=== PATIENT | female | born 1950 | race Caucasian/White ===

== ENCOUNTER → 2019-10-08 15:12 | Outpatient (BNVA) | payer MEDICARE, OTHER, SELFPAY | PROVIDERS: Visit Provider Nurse Practitioner Family | DX: J40 Bronchitis, not specified as acute or chronic (principal); N30.90 Cystitis, unspecified without hematuria | CPT/HCPCS: 81000 ==

== ENCOUNTER → 2020-01-03 16:19 | Outpatient (BNVA) | payer MEDICARE, OTHER, SELFPAY | PROVIDERS: Visit Provider Nurse Practitioner Family | DX: R30.0 Dysuria (principal) | CPT/HCPCS: 81000; 87086 ==

== ENCOUNTER → 2020-03-14 12:08 | Outpatient (BNVA) | payer MEDICARE, OTHER, SELFPAY | PROVIDERS: Visit Provider Nurse Practitioner Family | DX: Z11.59 Encounter for screening for other viral diseases (principal) | CPT/HCPCS: 87635 ==

== ENCOUNTER 2020-05-05 22:27 | Inpatient (IN) | payer MEDICARE, OTHER, MEDICAID, SELFPAY ==
[2020-05-05 22:33] VITALS: BP 98/59; PULSE 89; RESP 24; TEMP 36.8; O2SAT 94; BMI 23.7
--- NOTE | 2020-05-05 22:36 | ECG_ITS ---
[facility] Test Date: 2020-05-05 Pat Name: Mari Taylor Department: Room: Gender: Female Production Grader: : 1950 Requested By: Salo Martin Order Number: [id number] Laci MD: Alisia Fernandez M.D. Measurements Intervals [place] Rate: 84 P: 67 [place]: 148 QRS: 63 QRSD: 77 T: 66 QT: 362 QTc: 429 Interpretive Statements SINUS RHYTHM No previous ECG available for comparison Electronically Signed On 05-06-2020 18:54:51 GAS TRANSFER OPERATOR by Alisia Fernandez M.D. [id number]
--- NOTE | 2020-05-05 22:36 | CTR_ITS ---
PROCEDURE INFORMATION: Exam: CT Head Without Contrast Exam date and time: 05/05/2020 10:41 PM Age: 70 years old Clinical indication: Altered mental status/memory loss; Confusion or disorientation TECHNIQUE: Imaging protocol: Computed tomography of the head without contrast. Radiation optimization: All CT scans at this facility use at least one of these dose optimization techniques: automated exposure control; mA and/or kV adjustment per patient size (includes targeted exams where dose is matched to clinical indication); or iterative reconstruction. COMPARISON: MRI Head w/wo* [id number] 09/25/2015 8:33 AM RADIATION DOSE METRICS: Total DLP (mGy-cm): 476.03 FINDINGS: Brain: No evidence of active or acute intracranial pathologic process, hemorrhage, or trauma. Moderate small vessel ischemic disease with senile periventricular leukomalacia. Cerebral and cerebellar atrophy with ventricular dilatation greater than that anticipated for patient's chronological age. No mass effect. No midline shift. No visible evidence of diffuse cerebral edema or generalized demyelination. Cerebral ventricles: Ventriculomegaly with thinning of the corpus callosum. Consideration might be given to normal pressure hydrocephalus. Bones/joints: Unremarkable. No acute fracture. Paranasal sinuses: Mild active sphenoid sinusitis. Mastoid air cells: Findings of a suspected previous partial left mastoidectomy. Auditory system: Left external otitis cerumen impaction. Soft tissues: Unremarkable. CT/CT head wo con* [id number] IMPRESSION: 1. No evidence of active or acute intracranial pathologic process, hemorrhage, or trauma. 2. Moderate small vessel ischemic disease with senile periventricular leukomalacia. 3. Ventriculomegaly with thinning of the corpus callosum. Consideration might be given to normal pressure hydrocephalus. 4. Sphenoid sinusitis. Radiation Dose CTDIVOL = (mGy): DLP = 476.03 (mGy-cm)
--- NOTE | 2020-05-05 22:36 | XRR_ITS ---
PROCEDURE INFORMATION: Exam: XR Chest, 1 View Exam date and time: 05/05/2020 10:41 PM Age: 70 years old Clinical indication: Other: AMS TECHNIQUE: Imaging protocol: XR of the chest Views: 1 view. COMPARISON: No relevant prior studies available. FINDINGS: Lungs: Bibasilar ground-glass interstitial lung disease most likely reflecting active interstitial pneumonitis. Senile fibrosis. Pleural space: Unremarkable. No pleural effusion. No pneumothorax. Heart/Mediastinum: Cardiac structures and configuration with arteriosclerosis. Bones/joints: Unremarkable for age. XR/XR chest 1V portable [id number] IMPRESSION: Bibasilar ground-glass interstitial lung disease most likely reflecting active interstitial pneumonitis.
--- NOTE | 2020-05-05 23:20 | ED_ITS ---
HPI - Altered Mental Status General: Chief Complaint: Altered Mental Status Stated Complaint: ams Time Seen by Provider: 05/05/20 22:36 History of Present Illness: HPI narrative: 70-year-old female correction patient. She was diagnosed with COVID-19 yesterday. She presents with a rapid decline and altered mental status. Evidently, she usually helps with some of her ADLs, and talks. Today, she has not been able to help, and has been nonverbal. She does have a history of dementia. complaint: altered mental status Onset (ago): hour(s) Timing confirmed by: caregiver Severity: moderate Consistency of symptoms: Getting Worse Context: recent fever Associated symptoms: Reports no associated symptoms Review of Systems General: Reports: ROS unobtainable due to mental status PFSH ED PFSH: Medical History Alzheimer's dementia Dementia HX: breast cancer Hypertension Inflammatory arthritis Vitamin D deficiency Surgical History Hx of appendectomy Family History Other Family history non-contributory Social History Smoking and tobacco status: former smoker Quit status (tobacco): has quit using tobacco Year quit tobacco: 2011 Second hand smoke exposure: No Alcohol intake: never Lives independently: No Household members: family and children Marital status: Current occupational status: retired History of recent travel: No Current gender identity: Female Physical Exam Const: GENERAL APPEARANCE: ill appearing and frail appearing; not in distress ORIENTATION/CONSCIOUSNESS: not oriented to person, not oriented to place and not oriented to time HENMT: COMMON NORMALS: normocephalic, external ears normal and Normal external nose present HEAD & SCALP: normocephalic FACE & SINUS: normal facial exam NOSE: Normal external nose present and No nasal discharge present EXTERNAL EAR: Yes external ears normal MOUTH: tongue normal Eye: COMMON NORMALS: Equal, round and reactive pupils present, EOMs intact bilaterally and conjunctivae normal EYELID: eyelids normal CONJUNCTIVA: Yes conjunctivae normal PUPIL: Yes Equal, round and reactive pupils present Neck/C-Spine: GENERAL: No tracheal deviation Chest: COMMONS NORMALS: normal inspection of the chest CHEST: No tenderness Resp: COMMON NORMALS: clear to auscultation bilaterally EFFORT & INSPECTION: No tachypneic, No respiratory distress, No retractions, No uses accessory muscles and No tracheal deviation AUSCULTATION: clear to auscultation bilaterally, no rhonchi, no wheezes and lung sounds not diminished Cardio: COMMON NORMALS: regular rate and regular rhythm RATE: regular rate RHYTHM: regular rhythm HEART SOUNDS: no murmurs PERIPHERAL PULSES: radial pulses present GI: INSPECTION: No abdominal distension AUSCULTATION: No Hyperactive bowel sounds present and No Hypoactive bowel sounds present PALPATION: No Guarding due to palpation present (GI) and No Rigid due to palpation PERCUSSION: no dullness to percussion and no tympanic to percussion Neuro: SENSORIUM/ORIENTATION: No oriented to person, No oriented to place and No oriented to time MENINGEAL SIGNS: No nuccal rigidity SENSORY EXAM: Yes extremities (intact) MOTOR EXAM: Motor abnormalities not present Skin: COMMON NORMALS: no rashes or lesions noted GENERAL SKIN EXAM: no rashes or lesions noted Course Vital Signs: Vital signs: Vital Signs Temperature 100.0 F H 05/05/20 23:30 Pulse Rate 90 05/06/20 02:34 Respiratory Rate 16 05/06/20 02:34 Blood Pressure 103/63 05/06/20 02:34 Pulse Oximetry 93 05/06/20 02:34 MDM - Altered Mental Status MDM Narrative: Medical decision making narrative: 70-year-old correction patient with a history of dementia. She presents with worsening mental status. She was diagnosed with Covid there yesterday. Evidently she had a period of low blood pressure in the correction along with her change in mental status and decline in activity. She is nonverbal for us here. She does move all extremities, and awaken to voice. Her blood pressure was low here once down in the upper 60s systolic. This seemed to respond with arousing her. She is received 1 L bolus. Her blood pressure is . She is a DNR patient. If her pressure stays up, we would like to put her on the floor. She is requiring oxygen, but her saturations have been 99%. Her chest x-ray reveals mild bilateral infiltrates suggestive of pneumonitis. Her creatinine is 2.1, with a BUN of 53. Lab Data: Labs: Lab Results 11/13/20 11/13/20 11/13/20 Range/Units 23:27 23:27 23:27 WBC 3.7 L (4.0-10.0) 10^3/ uL RBC 3.90 L (4.1-5.3) 10^6/u L Hgb 12.3 (11.5-15.3) g/dL Hct 38.6 (37.0-47.0) % MCV 99.0 (81-99) fL MCH 31.5 (28.0-34.0) pg MCHC 31.9 (30.0-36.0) g/dL RDW 15.5 H (12.1-15.1) % Plt Count 227 (130-400) 10^3/c mm MPV 11.3 H (7.4-10.4) fL Lymph % (Auto) Not Reportable [place] % (Auto) Not Reportable Lymph # (Auto) Not Reportable [place] # (Auto) Not Reportable Total Counted 100 (0-100) Atypical Lymphs % 0.0 (0-5) % Absolute Neutrophi ls 3.0 (1.4-6.5) 10^3/c mm Segmented Neutroph ils 56 % Abs Segm Neuts (Ma n) 2.1 (1.6-7.1) 10/cmm Band Neutrophils 25.0 % Abs Band Neuts (Ma n) 0.9 (0.0-1.2) 10^3/c mm Lymphocytes (Manua l) 9 % Monocytes (Manual) 9.0 % Absolute Monocytes 0.3 (0.1-0.6) 10^3/c mm Eosinophils (Manua l) 0 % Absolute Eosinophi ls 0.0 (0.0-0.7) 10^3/c mm Basophils (Manual) 0.0 % Absolute Basophils 0.0 (0.0-0.2) 10^3/c mm Metamyelocytes 1.0 % Platelet Estimate Normal (Normal) Giant Platelets Trace Polychromasia 1+ H Hypochromasia 1+ H D-Dimer (0-0.59) ug/mIFE U Sodium 136 (136-145) mmol/L Potassium 4.5 (3.5-5.1) mmol/L Chloride 99 (98-107) mmol/L Carbon Dioxide 22 (22-29) mmol/L Anion Gap 19.5 H (5-19) BUN 53 H (8-23) mg/dL Creatinine 2.1 H (0.5-0.9) mg/dL GFR Calculation 23.3 L (90-130) mL/min Glucose 114 (65-115) mg/dL Calculated Osmolal ity 297 H (285-295) mOsm/k g Lactic Acid 1.0 (0.5-2.2) mmol/L Calcium 8.8 (8.5-10.5) mg/dL Total Bilirubin 0.5 (0.15-1.2) mg/dL AST 76 H (0-32) U/L ALT 43 H (0-33) U/L Alkaline Phosphata se 115 H (35-105) IU/L Lactate Dehydrogen ase (135-214) U/L Troponin T Baselin e (0-10) ng/L Troponin T 120 Min iqugmiut (0-10) ng/L Delta Troponin T (0-10) ABS# C-Reactive Protein (0.0-4.9) mg/L Total Protein 6.7 (6.6-8.7) g/dL Albumin 4.1 (3.5-5.2) g/dL Globulin 2.6 (1.3-4.6) g/dL Procalcitonin (0-0.5) ng/mL 05/05/20 05/05/20 05/05/20 Range/Units 23:27 23:27 23:27 WBC (4.0-10.0) 10^3/ uL RBC (4.1-5.3) 10^6/u L Hgb (11.5-15.3) g/dL Hct (37.0-47.0) % MCV (81-99) fL MCH (28.0-34.0) pg MCHC (30.0-36.0) g/dL RDW (12.1-15.1) % Plt Count (130-400) 10^3/c mm MPV (7.4-10.4) fL Lymph % (Auto) [place] % (Auto) Lymph # (Auto) [place] # (Auto) Total Counted (0-100) Atypical Lymphs % (0-5) % Absolute Neutrophi ls (1.4-6.5) 10^3/c mm Segmented Neutroph ils % Abs Segm Neuts (Ma n) (1.6-7.1) 10/cmm Band Neutrophils % Abs Band Neuts (Ma n) (0.0-1.2) 10^3/c mm Lymphocytes (Manua l) % Monocytes (Manual) % Absolute Monocytes (0.1-0.6) 10^3/c mm Eosinophils (Manua l) % Absolute Eosinophi ls (0.0-0.7) 10^3/c mm Basophils (Manual) % Absolute Basophils (0.0-0.2) 10^3/c mm Metamyelocytes % Platelet Estimate (Normal) Giant Platelets Polychromasia Hypochromasia D-Dimer 9.34 H (0-0.59) ug/mIFE U Sodium (136-145) mmol/L Potassium (3.5-5.1) mmol/L Chloride (98-107) mmol/L Carbon Dioxide (22-29) mmol/L Anion Gap (5-19) BUN (8-23) mg/dL Creatinine (0.5-0.9) mg/dL GFR Calculation (90-130) mL/min Glucose (65-115) mg/dL Calculated Osmolal ity (285-295) mOsm/k g Lactic Acid (0.5-2.2) mmol/L Calcium (8.5-10.5) mg/dL Total Bilirubin (0.15-1.2) mg/dL AST (0-32) U/L ALT (0-33) U/L Alkaline Phosphata se (35-105) IU/L Lactate Dehydrogen ase 423 H (135-214) U/L Troponin T Baselin e 10 (0-10) ng/L Troponin T 120 Min iqugmiut (0-10) ng/L Delta Troponin T (0-10) ABS# C-Reactive Protein 121.8 H (0.0-4.9) mg/L Total Protein (6.6-8.7) g/dL Albumin (3.5-5.2) g/dL Globulin (1.3-4.6) g/dL Procalcitonin 0.31 (0-0.5) ng/mL 05/06/20 Range/Units 00:21 WBC (4.0-10.0) 10^3/ uL RBC (4.1-5.3) 10^6/u L Hgb (11.5-15.3) g/dL Hct (37.0-47.0) % MCV (81-99) fL MCH (28.0-34.0) pg MCHC (30.0-36.0) g/dL RDW (12.1-15.1) % Plt Count (130-400) 10^3/c mm MPV (7.4-10.4) fL Lymph % (Auto) [place] % (Auto) Lymph # (Auto) [place] # (Auto) Total Counted (0-100) Atypical Lymphs % (0-5) % Absolute Neutrophi ls (1.4-6.5) 10^3/c mm Segmented Neutroph ils % Abs Segm Neuts (Ma n) (1.6-7.1) 10/cmm Band Neutrophils % Abs Band Neuts (Ma n) (0.0-1.2) 10^3/c mm Lymphocytes (Manua l) % Monocytes (Manual) % Absolute Monocytes (0.1-0.6) 10^3/c mm Eosinophils (Manua l) % Absolute Eosinophi ls (0.0-0.7) 10^3/c mm Basophils (Manual) % Absolute Basophils (0.0-0.2) 10^3/c mm Metamyelocytes % Platelet Estimate (Normal) Giant Platelets Polychromasia Hypochromasia D-Dimer (0-0.59) ug/mIFE U Sodium (136-145) mmol/L Potassium (3.5-5.1) mmol/L Chloride (98-107) mmol/L Carbon Dioxide (22-29) mmol/L Anion Gap (5-19) BUN (8-23) mg/dL Creatinine (0.5-0.9) mg/dL GFR Calculation (90-130) mL/min Glucose (65-115) mg/dL Calculated Osmolal ity (285-295) mOsm/k g Lactic Acid (0.5-2.2) mmol/L Calcium (8.5-10.5) mg/dL Total Bilirubin (0.15-1.2) mg/dL AST (0-32) U/L ALT (0-33) U/L Alkaline Phosphata se (35-105) IU/L Lactate Dehydrogen ase (135-214) U/L Troponin T Baselin e (0-10) ng/L Troponin T 120 Min iqugmiut 11.18 H (0-10) ng/L Delta Troponin T 1.18 (0-10) ABS# C-Reactive Protein (0.0-4.9) mg/L Total Protein (6.6-8.7) g/dL Albumin (3.5-5.2) g/dL Globulin (1.3-4.6) g/dL Procalcitonin (0-0.5) ng/mL Discharge Plan Discharge Patient Disposition: Admitted As Inpatient Admit Provider: Yohana Ruiz Clinical Impression: COVID-19, Acute hypotension Altered mental status Qualifiers: Altered mental status type: unspecified Qualified Code(s): R41.82 - Altered mental status, unspecified Condition: Stable Coding Level of Care Code ED Dry Cleaning Supervisor for [facility] Fwd Exam Comprehensive
[2020-05-05 23:30] VITALS: BP 98/58; PULSE 74; RESP 15; TEMP 37.8; O2SAT 95
[2020-05-06] VITALS (14 sets, daily range): BP systolic 71–135; BP diastolic 56–96; PULSE 59–96; RESP 13–24; TEMP 36.8–37.2; O2SAT 90–95
[2020-05-06 00:01] LABS: Alanine Aminotransferase 43 U/L (0-33); Albumin Level 4.1 g/dL (3.5-5.2); Alkaline Phosphatase 115 IU/L (35-105); Anion Gap 19.5 (5-19); Aspartate Amino Transferase 76 U/L (0-32); Blood Urea Nitrogen 53 mg/dL (8-23); Calcium 8.8 mg/dL (8.5-10.5); Carbon Dioxide 22 mmol/L (22-29); Chloride 99 mmol/L (98-107); Globulin 2.6 g/dL (1.3-4.6); Glomerular Filtration Rate 23.3 mL/min (90-130); Glucose 114 mg/dL (65-115); Osmolality Calculated 297 mOsm/kg (285-295); Potassium 4.5 mmol/L (3.5-5.1); Sodium 136 mmol/L (136-145); Total Bilirubin 0.5 mg/dL (0.15-1.2); Total Protein 6.7 g/dL (6.6-8.7)
[2020-05-06 00:03] LABS: Troponin(5th) Baseline 10 ng/L (0-10)
[2020-05-06 00:04] LABS: Hematocrit 38.6 % (37.0-47.0); Hemoglobin 12.3 g/dL (11.5-15.3); Mean Corpuscular HGB Conc 31.9 g/dL (30.0-36.0); Mean Corpuscular Hemoglobin 31.5 pg (28.0-34.0); Mean Platelet Volume 11.3 fL (7.4-10.4); Platelet Count 227 10^3/cmm (130-400); Red Cell Distribution Width 15.5 % (12.1-15.1); White Blood Count 3.7 10^3/uL (4.0-10.0)
[2020-05-06 00:06] LABS: Slide Review Slide Review Perform
[2020-05-06 00:11] LABS: Absolute Segmented Neutrophil 2.1 10/cmm (1.6-7.1); Band Neutrophils Absolute 0.9 10^3/cmm (0.0-1.2); Eosinophils 0 %; Hypochromasia 1+; Lymphocytes 9 %; Monocytes Absolute 0.3 10^3/cmm (0.1-0.6); Platelet Estimate Normal (Normal); Polychromasia 1+; Segmented Neutrophils 56 %; Total Cells Counted 100 (0-100)
[2020-05-06 00:12] LABS: Giant Platelets Trace
[2020-05-06] MEDS: sodium chloride 0.9% 1,000 ML 999 ML IV (00:20)
[2020-05-06] MEDS: acetaminophen 650 mg Supp PR (00:29)
--- NOTE | 2020-05-06 00:34 | PC.NURSE ---
Took call from Vee LAMB from [facility].
--- NOTE | 2020-05-06 00:36 | ECG_ITS ---
[facility] Test Date: 2020-05-06 Pat Name: Mari Taylor Department: Room: Gender: Female Supervisor Specialty Plant: : 1950 Requested By: Salo Martin Order Number: [id number] Laci MD: Alisia Fernandez M.D. Measurements Intervals [place] Rate: 98 P: 76 [place]: 179 QRS: 66 QRSD: 75 T: 60 QT: 356 QTc: 455 Interpretive Statements SINUS RHYTHM NONSPECIFIC T-WAVE ABNORMALITY Compared to ECG 05/05/2020 22:49:43 T-wave abnormality now present Electronically Signed On 05-06-2020 18:59:11 PLUSH WEAVER by Alisia Fernandez M.D. [id number]
--- NOTE | 2020-05-06 00:41 | PC.NURSE ---
EKG done at 0035 and shown to ER doctor
[2020-05-06 00:48] LABS: Troponin 5 2HR 11.18 ng/L (0-10); Troponin 5 2HR Delta 1.18 ABS# (0-10)
[2020-05-06 00:52] LABS: D Dimer 9.34 ug/mIFEU (0-0.59)
[2020-05-06 00:58] LABS: Procalcitonin 0.31 ng/mL (0-0.5)
[2020-05-06 01:08] LABS: C Reactive Protein 121.8 mg/L (0.0-4.9)
--- NOTE | 2020-05-06 01:14 | PM.HP ---
Providers/Chief Complaint Chief Complaint: ams History of Present Illness Mari Taylor is a 70 year old female who is a alf resident at [facility] presented to the hospital with chief complaint of altered mental status/confusion. [facility] nurse is telling me that for last 3 to 4 days she has been confused more than her baseline, she was tested positive for COVID-19 on Friday, she stays in Alzheimer[facility] unit where lot of residents are COVID-19 positive. She has baseline memory deficit, but can carry little bit of conversation, mildly functional for daily activities. No vomiting was witnessed at the facility, today her systolic blood pressure was 70 and diastolic 38 mmHg, she was afebrile, saturating 80% on room air which prompted her visit to the ER. Diagnosis in the ER revealed hypotension, low-grade fever 100.0, she is requiring 3L nasal cannula, High D-dimer, chest x-ray is not showing any consolidation, procalcitonin negative, I have started on heparin drip, she had received 1.5 L bolus in the ER with mean arterial pressure 65 at the time of my evaluation, patient's GCS is 12 spontaneous opening of her eyes, on painful stimuli she would withdraw away and state stop it . She is DNR/DNI, she is on multiple Alzheimer's dementia medications, in last 2 months she has been prescribed amoxicillin for sinus infection, clindamycin for lower extremity cellulitis Review of Systems General: Reports: ROS unobtainable due to medical condition (Hypoactive delirium due to COVID-19 with underlying dementia) Medications/Allergies Home Medications Medication Instructions Recorded Confirmed Last Taken Type donepezil 10 mg tablet 10 mg PO BID 10/08/19 05/05/20 Unknown History lisinopril 10 mg tablet 10 mg PO BID 10/08/19 05/05/20 Unknown History methotrexate sodium 2.5 mg tablet 2.5 mg PO .ONCE WEEKLY tab 10/08/19 05/05/20 Unknown History leflunomide 20 mg tablet See Rx Instructions .ROUTE 12/16/19 05/05/20 Unknown Rx .COMPLEX #30 tab folic acid 1 mg tablet See Rx Instructions .ROUTE 01/13/20 05/05/20 Unknown Rx .COMPLEX #90 tab citalopram 20 mg tablet 20 mg PO BEDTIME 02/17/20 05/05/20 Unknown History cetirizine 10 mg tablet 10 mg PO DAILY PRN #30 tab 03/14/20 05/05/20 Unknown Rx fluticasone propionate 50 1 spray INTRANASAL DAILY #15.8 ml 03/14/20 05/05/20 Unknown Rx mcg/actuation nasal spray,suspension acetaminophen [Tylenol] 650 mg PO TID PRN 05/05/20 05/05/20 Unknown History calcium citrate-vitamin D3 1 tab PO DAILY 05/05/20 05/05/20 Unknown History [Calcitrate-Vitamin D] docusate sodium 100 mg PO BID 05/05/20 05/05/20 Unknown History memantine 10 mg PO BID 05/05/20 05/05/20 Unknown History niacin 500 mg PO DAILY 05/05/20 05/05/20 Unknown History omega-3 fatty acids [[place] 3] 1,000 mg PO DAILY 05/05/20 05/05/20 Unknown History quetiapine [Seroquel XR] 50 mg PO BID 05/05/20 05/05/20 Unknown History Allergies Allergy/AdvReac Type Severity Reaction Status Date / Time alendronate sodium Allergy Unknown UNKNOWN Verified 03/14/20 10:56 [From Fosamax] atorvastatin [From Lipitor] Allergy Unknown UNKNOWN Verified 03/14/20 10:56 Latex, Natural Rubber Allergy Unknown UNKNOWN Verified 03/14/20 10:56 PFSH Acute PFSH: Medical History Alzheimer's dementia Dementia HX: breast cancer Hypertension Inflammatory arthritis Vitamin D deficiency Surgical History Hx of appendectomy Family History Other Family history non-contributory Social History Smoking and tobacco status: former smoker Quit status (tobacco): has quit using tobacco Year quit tobacco: 2011 Second hand smoke exposure: No Alcohol intake: never Lives independently: No Household members: family and children Marital status: Current occupational status: retired History of recent travel: No Current gender identity: Female Vitals/I&O/Wt Last Vital Signs Temp 100.0 F H 05/05/20 23:30 Pulse 96 05/06/20 00:54 Resp 19 H 05/06/20 00:54 BP 112/96 05/06/20 00:54 Pulse Ox 92 05/06/20 00:54 Weight last 48 hrs Weight 66.678 kg Physical Exam Narrative: EXAM NARRATIVE: Patient is laying comfortable in right lateral position when I entered the room she was saturating well on 2 L nasal cannula No active respiratory distress Mean arterial pressure 65 mmHg Normal saline bolus running at the bedside GCS 12 Able to protect airways Spontaneous opening of her eyes She is able to move her extremities without any limitations on painful stimuli, She would only respond to simple questions Abdomen soft, distended nontender Cognitive impairment Oriented to herself Lower extremity no edema gangrene ulcer Mild hyperemia of plantar side of her feet without active cellulitis Excessively dry skin Data : 05/05/20 23:27 05/05/20 23:27 Micro: Microbiology 05/05/20 23:27 Blood Culture - Preliminary Blood SPECIMEN COLLECTED 05/05/20 23:27 Blood Culture - Preliminary Blood SPECIMEN COLLECTED A&P Assessment and plan (1) COVID-19: Status: Acute (2) Acute hypotension: Status: Acute (3) Altered mental status: Status: Acute Qualifiers: Altered mental status type: unspecified Qualified Code(s): R41.82 - Altered mental status, unspecified (4) Alzheimer's dementia: Status: Acute (5) YVONNE (acute kidney injury): Status: Acute (6) Dehydration: Status: Acute (7) Sepsis: Status: Acute (8) Acute respiratory failure with hypoxia: Status: Acute Additional A&P Information Sepsis secondary to COVID-19 viral pneumonia No other source of infection identified, procalcitonin negative, Sepsis criteria met with low-grade fever, leukopenia, hypotension I would start her on Decadron, I would be reluctant to start remdesivir considering mildly abnormal transaminases Would not initiate antibiotics Acute hypoxic respiratory failure secondary to COVID-19 pneumonia Extremely high D-dimer I will start her on heparin drip, high suspicion for PE secondary to hypercoagulable state with COVID-19 Not a candidate for CTA chest because of YVONNE, once stable could benefit from VQ scan Currently doing well on 3 to nasal cannula, she is DNR/DNI however no acute respiratory distress YVONNE Most likely secondary to lisinopril and dehydration Currently she is status post 1.5 L normal saline bolus in the ER Monitor urine output, Follow-up with urinalysis Acute hypoactive delirium with underlying dementia This most likely secondary to dehydration and COVID-19 pneumonia At baseline she could communicate, mildly function for ADL Check B12, TSH DNR/DNI N.p.o. until her mentation improves DVT prophylaxis not needed currently on heparin drip Secondary to significant comorbidities he carries higher mortality morbidity risk Attestations Medical Necessity Statement*: I am anticipating patient might need more than 2 midnights currently need IV fluids for hypotension, I have started her on heparin drip for suspicion of pulmonary embolism due to high D-dimer Time Spent in Patient Care: 50mins Coding Level of Care Code Acute Mult Au Matic Operator for Chg Fwd Diagnoses COVID-19 U07.1 Acute hypotension I95.9 Altered mental status R41.82 Altered mental status type: unspecified Alzheimer's dementia G30.9; F02.80 YVONNE (acute kidney injury) N17.9 Dehydration E86.0 Sepsis A41.9 Acute respiratory failure with hypoxia J96.01
[2020-05-06 01:23] LABS: Lactate Dehydrogenase 423 U/L (135-214)
[2020-05-06] MEDS: sodium chloride 0.9% 1,000 ML 100 ML IV (01:40)
--- NOTE | 2020-05-06 01:40 | PC.NURSE ---
Per hospitalist verbal orders bolus 500mL of IV maintenance NS then return to 100ml/hr for the remaining 500mL.
--- NOTE | 2020-05-06 02:03 | PC.NURSE ---
Per ED physician bolus remaining 500ml of 1L maintenance NS IVF
[2020-05-06] MEDS: sodium chloride 0.9% 500 ML 999 ML IV (02:36)
[2020-05-06 04:20] LABS: Basophils % 0.7 %; Eosinophils % 0.4 %; Hematocrit 29.4 % (37.0-47.0); Hemoglobin 9.4 g/dL (11.5-15.3); Lymphocytes # 0.5 10^3/uL (0.8-4.8); Lymphocytes % 16.3 %; Mean Platelet Volume 11.1 fL (7.4-10.4); Monocytes # 0.2 10^3/uL (0.2-0.9); Monocytes % 5.8 %; Neutrophils # 2.04 10^3/uL (1.8-7.7); Neutrophils % 73.9 %; Nucleated Red Blood Cells % 0 %; Platelet Count 215 10^3/cmm (130-400); Red Blood Count 2.94 10^6/uL (4.1-5.3); Red Cell Distribution Width 15.4 % (12.1-15.1); White Blood Count 2.8 10^3/uL (4.0-10.0)
[2020-05-06 04:26] LABS: Partial Thromboplastin Time 28.1 SECONDS (23.9-36.7)
[2020-05-06 04:31] LABS: Blood Urea Nitrogen 39 mg/dL (8-23); C Reactive Protein 81.7 mg/L (0.0-4.9); Calcium 6.6 mg/dL (8.5-10.5); Carbon Dioxide 17 mmol/L (22-29); Chloride 110 mmol/L (98-107); Glomerular Filtration Rate 40.5 mL/min (90-130); Glucose 78 mg/dL (65-115); Osmolality Calculated 294 mOsm/kg (285-295); Sodium 138 mmol/L (136-145)
[2020-05-06] MEDS: midodrine 5 mg TABLET 10 MG PO (04:38)
[2020-05-06] MEDS: dextrose 5%-sod chloride 0.45% 1,000 ML 30 ML IV (04:38)
[2020-05-06 04:57] LABS: Anion Gap 14.7 (5-19); Potassium 3.7 mmol/L (3.5-5.1)
[2020-05-06] MEDS: dexamethasone 4 mg/mL INJ 10 MG IVP (05:00)
[2020-05-06] MEDS: heparin 5,000 unit/mL INJ 1 mL IV (05:01)
[2020-05-06] MEDS: dexamethasone 4 mg Tablet 6 MG PO (10:14)
[2020-05-06] MEDS: donepezil 5 MG Tablet 10 MG PO ×2 (10:15→17:25)
[2020-05-06] MEDS: memantine 5 mg tablet 10 MG PO ×2 (10:16→17:24)
[2020-05-06 11:48] LABS: Partial Thromboplastin Time 64.8 SECONDS (23.9-36.7)
[2020-05-06 16:22] LABS: Bilirubin Urine Neg (Negative); Blood Urine Neg (Negative); Glucose Urine UA 1+ (Normal); Ketones Urine Negative (Negative); Nitrate Urine Positive (Negative); Protein Urine Neg (Negative); Specific Gravity, Urine 1.015 (1.005-1.030); Urine Appearance Hazy (CLEAR); Urine Color Yellow (Yellow); Urobilinogen Urine Norm (Negative); pH Urine 5 (5-7)
[2020-05-06 16:23] LABS: Add Urine Microscopic? YES; Leukocyte Esterase Urine Negative (Negative)
[2020-05-06 16:31] LABS: Add Urine Culture? Yes; Bacteria Urine 4+ /hpf; Squamous Epithelial Cell Urine RARE /hpf (0-5); WBC Urine 0-4 /hpf (0-5)
[2020-05-06 18:46] LABS: Partial Thromboplastin Time 63.3 SECONDS (23.9-36.7)
[2020-05-07] VITALS: BP 149/76; PULSE 57; RESP 22; TEMP 36.5; O2SAT 92
[2020-05-07 01:32] LABS: Partial Thromboplastin Time 30.3 SECONDS (23.9-36.7)
[2020-05-07] MEDS: heparin 5,000 unit/mL INJ 1 mL IV (02:27)
[2020-05-07 04:00] VITALS: BP 140/70; PULSE 65; RESP 18; TEMP 36.8; O2SAT 97
[2020-05-07 08:00] VITALS: BP 120/70; PULSE 59; RESP 18; TEMP 36.4; O2SAT 92
--- NOTE | 2020-05-07 09:20 | P.PN_ITS ---
Subjective Subjective: Interval history: Apparently patient has advanced dementia and cannot communicate much. She does however assist with repositioning. She has what appears to be chemical dermatitis involving her buttocks. Browning catheter was placed yesterday because of urinary incontinence. Patient also appears to have fecal incontinence. UA was obtained yesterday showing evidence of UTI. Morning labs are pending. RN had concern for patient not being able to swallow food. She appears to be tolerating clear liquids well. Vitals/I&O/Wt Last Vital Signs Temp 97.5 F L 05/07/20 08:00 Pulse 59 L 05/07/20 08:00 Resp 18 05/07/20 08:00 BP 120/70 05/07/20 08:00 Pulse Ox 92 05/07/20 08:00 05/06/20 05/07/20 05/07/20 22:59 06:59 14:59 Intake Total 250 / 250 Output Total 350 / 350 Balance -100 / -100 Weight last 48 hrs Weight 66.678 kg Physical Exam Const: COMMON NORMALS: no acute distress Resp: COMMON NORMALS: normal respiratory effort and clear to auscultation bilaterally AUSCULTATION: clear to auscultation bilaterally Cardio: COMMON NORMALS: regular rate, regular rhythm and S2 normal heart sound present RATE: regular rate RHYTHM: regular rhythm HEART SOUNDS: S2 normal heart sound present OTHER: No lower extremity edema GI: COMMON NORMALS: Normal to inspection, nondistended, normoactive bowel sounds present, Soft to palpation and non-tender PALPATION: Yes Soft to palpation Neuro: COMMON NORMALS: no focal motor deficits Urinary Catheter Management^: Browning: Cath Placed During This Visit: yes Reason for Continuing Indwelling Catheter: Assist Healing of Perineal & Sacral Wounds- Incontinent Patients Urinary Catheter Date of Insertion: 05/06/20 Urinary Catheter Time of Insertion: 15:00 Data : 05/06/20 03:35 05/06/20 03:35 Micro: Microbiology 05/05/20 23:27 Blood Culture - Preliminary Blood 05/05/20 23:27 Blood Culture - Preliminary Blood A&P Assessment and plan (1) COVID-19: Status: Acute (2) Acute hypotension: Status: Acute (3) Altered mental status: Status: Acute Qualifiers: Altered mental status type: unspecified Qualified Code(s): R41.82 - Altered mental status, unspecified (4) Alzheimer's dementia: Status: Acute (5) YVONNE (acute kidney injury): Status: Acute (6) Dehydration: Status: Acute (7) Sepsis: Status: Acute (8) Acute respiratory failure with hypoxia: Status: Acute (9) Urinary tract infection: Present on admission Status: Acute (10) Chemical dermatitis: Present admission Status: Acute Additional A&P Information Sepsis secondary to COVID-19 viral pneumonia and UTI. Acute hypoxic respiratory failure secondary to COVID-19 pneumonia Extremely high D-dimer I will start her on heparin drip, high suspicion for PE secondary to hypercoagulable state with COVID-19 Not a candidate for CTA chest because of YVONNE, once stable could benefit from VQ scan Currently doing well on 3 to nasal cannula, she is DNR/DNI however no acute respiratory distress YVONNE Most likely secondary to lisinopril and dehydration Currently she is status post 1.5 L normal saline bolus in the ER Monitor urine output, Follow-up with urinalysis Acute hypoactive delirium with underlying dementia This most likely secondary to dehydration and COVID-19 pneumonia At baseline she could communicate, mildly function for ADL Check B12, TSH DNR/DNI N.p.o. until her mentation improves DVT prophylaxis not needed currently on heparin drip Secondary to significant comorbidities he carries higher mortality morbidity risk PLAN: Since patient's kidney function improved and since patient requires 3 L of oxygen I will initiate remdesivir and continue dexamethasone. Start patient on ceftriaxone for evidence of UTI. Keep Browning catheter in for now and we will request wound care consult as well as speech therapy consult. Awaiting morning labs Attestations Medical Necessity Statement*: Patient with hypoxic respite failure due to COVID-19 as well as UTI requires close inpatient monitoring and treatment Time Spent in Patient Care: 16 - 35 minutes Coding Level of Care Code Acute Music Rehabilitation Therapist for [facility] Fwd Diagnoses COVID-19 U07.1 Acute hypotension I95.9 Altered mental status R41.82 Altered mental status type: unspecified Alzheimer's dementia G30.9; F02.80 YVONNE (acute kidney injury) N17.9 Dehydration E86.0 Sepsis A41.9 Acute respiratory failure with hypoxia J96.01 Urinary tract infection N39.0 Chemical dermatitis L25.3
[2020-05-07] MEDS: memantine 5 mg tablet 10 MG PO ×2 (09:22→17:25)
[2020-05-07] MEDS: donepezil 5 MG Tablet 10 MG PO ×2 (09:22→17:25)
[2020-05-07] MEDS: dexamethasone 4 mg Tablet 6 MG PO (09:22)
[2020-05-07 10:20] LABS: Partial Thromboplastin Time 228.8 SECONDS (23.9-36.7)
--- NOTE | 2020-05-07 10:26 | PC.NURSE ---
Heparin drip completely stopped at this time do to critical PTT. Will wait for redraw and resume then with in protocol limits.
[2020-05-07] MEDS: pantoprazole 40 mg SDV IVP (10:50)
[2020-05-07] MEDS: cefTRIAXone 1,000 MG in sodium chloride 0.9% (plus) 50 ML 100 MG IV (10:50)
[2020-05-07 11:32] VITALS: BP 134/76; PULSE 58; RESP 18; TEMP 36.7; O2SAT 91
[2020-05-07 11:33] LABS: Partial Thromboplastin Time 59.1 SECONDS (23.9-36.7)
[2020-05-07 11:36] LABS: Basophils % 0.3 %; Hematocrit 34.9 % (37.0-47.0); Hemoglobin 11.6 g/dL (11.5-15.3); Lymphocytes # 0.3 10^3/uL (0.8-4.8); Lymphocytes % 10.2 %; Mean Corpuscular HGB Conc 33.2 g/dL (30.0-36.0); Mean Corpuscular Hemoglobin 32.2 pg (28.0-34.0); Mean Corpuscular Volume 96.9 fL (81-99); Mean Platelet Volume 10.5 fL (7.4-10.4); Monocytes # 0.3 10^3/uL (0.2-0.9); Monocytes % 9.3 %; Neutrophils % 77.4 %; Nucleated Red Blood Cells % 0 %; Platelet Count 253 10^3/cmm (130-400); Red Cell Distribution Width 14.9 % (12.1-15.1); White Blood Count 3.2 10^3/uL (4.0-10.0)
[2020-05-07] MEDS: dextrose 5%-sod chloride 0.45% 1,000 ML 30 ML IV (11:38)
[2020-05-07] MEDS: heparin drip 25,000 UNIT/500 ML PREMIX 40.4 UNIT IV (11:53)
--- NOTE | 2020-05-07 12:33 | PC.NURSE ---
Asked patient if I could speak to her daughter Juju and patient stated yes. Patient's other daughter Mariola also gave permission. Mariola would like Juju added to the privacy form.
[2020-05-07 15:58] LABS: Alanine Aminotransferase 35 U/L (0-33); Albumin Level 3.1 g/dL (3.5-5.2); Alkaline Phosphatase 93 IU/L (35-105); Anion Gap 16.3 (5-19); Aspartate Amino Transferase 49 U/L (0-32); Blood Urea Nitrogen 23 mg/dL (8-23); Calcium 8.1 mg/dL (8.5-10.5); Carbon Dioxide 21 mmol/L (22-29); Chloride 105 mmol/L (98-107); Globulin 2.8 g/dL (1.3-4.6); Glucose 140 mg/dL (65-115); Osmolality Calculated 294 mOsm/kg (285-295); Potassium 3.3 mmol/L (3.5-5.1); Sodium 139 mmol/L (136-145); Total Bilirubin 0.2 mg/dL (0.15-1.2); Total Protein 5.9 g/dL (6.6-8.7)
[2020-05-07 16:00] VITALS: BP 135/77; PULSE 59; RESP 14; TEMP 36.4; O2SAT 92
--- NOTE | 2020-05-07 19:18 | PC.NURSE ---
Report to [place] Patient is still having liquid stools and her Heparin is going at 18. Her next lab draw is at 2300. Patient daughter Juju needs to be added to he HIPPA form tomorrow morning. Patient is on a pureed diet with sugar packets. Patient enjoys drinking warm sprite.
[2020-05-07 20:00] VITALS: BP 118/68; PULSE 60; RESP 16; TEMP 36.6; O2SAT 91
[2020-05-07 23:42] LABS: Partial Thromboplastin Time 85.6 SECONDS (23.9-36.7)
[2020-05-08] VITALS: BP 131/78; PULSE 62; RESP 16; TEMP 36.9; O2SAT 90
[2020-05-08 03:51] VITALS: BP 124/64; PULSE 59; RESP 16; TEMP 36.5; O2SAT 92
[2020-05-08 04:31] LABS: Basophils % 0.2 %; Hematocrit 33.7 % (37.0-47.0); Lymphocytes # 0.4 10^3/uL (0.8-4.8); Lymphocytes % 7.3 %; Mean Corpuscular HGB Conc 32.6 g/dL (30.0-36.0); Mean Corpuscular Hemoglobin 31.8 pg (28.0-34.0); Mean Corpuscular Volume 97.4 fL (81-99); Mean Platelet Volume 11.2 fL (7.4-10.4); Monocytes # 0.4 10^3/uL (0.2-0.9); Monocytes % 8.7 %; Neutrophils # 4.02 10^3/uL (1.8-7.7); Neutrophils % 81.8 %; Nucleated Red Blood Cells % 0 %; Platelet Count 245 10^3/cmm (130-400); Red Blood Count 3.46 10^6/uL (4.1-5.3); Red Cell Distribution Width 14.9 % (12.1-15.1); White Blood Count 4.9 10^3/uL (4.0-10.0)
[2020-05-08 04:54] LABS: Alanine Aminotransferase 34 U/L (0-33); Albumin Level 3.1 g/dL (3.5-5.2); Alkaline Phosphatase 94 IU/L (35-105); Aspartate Amino Transferase 54 U/L (0-32); Blood Urea Nitrogen 23 mg/dL (8-23); Calcium 7.9 mg/dL (8.5-10.5); Carbon Dioxide 23 mmol/L (22-29); Chloride 104 mmol/L (98-107); Globulin 2.6 g/dL (1.3-4.6); Glomerular Filtration Rate 98.8 mL/min (90-130); Glucose 113 mg/dL (65-115); Magnesium 1.8 mg/dL (1.7-2.3); Osmolality Calculated 290 mOsm/kg (285-295); Sodium 138 mmol/L (136-145); Total Bilirubin 0.3 mg/dL (0.15-1.2); Total Protein 5.7 g/dL (6.6-8.7)
[2020-05-08 06:06] LABS: Partial Thromboplastin Time 82.6 SECONDS (23.9-36.7)
[2020-05-08 08:00] VITALS: BP 126/71; PULSE 67; RESP 17; TEMP 36.7; O2SAT 91
[2020-05-08] MEDS: dexamethasone 4 mg Tablet 6 MG PO (09:08)
[2020-05-08] MEDS: memantine 5 mg tablet 10 MG PO ×2 (09:08→17:03)
[2020-05-08] MEDS: donepezil 5 MG Tablet 10 MG PO ×2 (09:08→17:03)
[2020-05-08] MEDS: cefTRIAXone 1,000 MG in sodium chloride 0.9% (plus) 50 ML 100 MG IV (09:08)
[2020-05-08] MEDS: pantoprazole 40 mg SDV IVP (10:40)
[2020-05-08] MEDS: dextrose 5%-sod chloride 0.45% 1,000 ML 30 ML IV (10:45)
[2020-05-08 11:51] LABS: Partial Thromboplastin Time 45.5 SECONDS (23.9-36.7)
[2020-05-08 11:57] VITALS: BP 144/83; PULSE 59; RESP 17; TEMP 36.3; O2SAT 90
[2020-05-08] MEDS: heparin 5,000 unit/mL INJ 1 mL IV (12:01)
--- NOTE | 2020-05-08 12:32 | PM.PN ---
Subjective Subjective: Interval history: Patient cannot communicate. She is not in any distress. Her oxygen requirement improved and now she saturates in the low 90s on 2 L by nasal cannula. WBC improved. Hemoglobin and platelets are stable. Vitals are stable. Vitals/I&O/Wt Last Vital Signs Temp 97.3 F L 05/08/20 11:57 Pulse 59 L 05/08/20 11:57 Resp 17 05/08/20 11:57 BP 144/83 05/08/20 11:57 Pulse Ox 90 05/08/20 11:57 05/07/20 05/08/20 05/08/20 22:59 06:59 14:59 Intake Total 220 / 1355.3 743.5 / 743.5 Output Total 1400 / 1750 Balance -1180 / -394.7 743.5 / 743.5 Physical Exam Const: COMMON NORMALS: no acute distress Resp: COMMON NORMALS: normal respiratory effort and clear to auscultation bilaterally AUSCULTATION: clear to auscultation bilaterally Cardio: COMMON NORMALS: regular rate, regular rhythm and S2 normal heart sound present RATE: regular rate RHYTHM: regular rhythm HEART SOUNDS: S2 normal heart sound present OTHER: No lower extremity edema GI: COMMON NORMALS: Normal to inspection, nondistended, normoactive bowel sounds present, Soft to palpation and non-tender PALPATION: Yes Soft to palpation Neuro: COMMON NORMALS: no focal motor deficits Urinary Catheter Management^: Browning: Cath Placed During This Visit: yes Reason for Continuing Indwelling Catheter: Accurate Measurement of Urinary Output in Critically Ill Patients Urinary Catheter Date of Insertion: 05/06/20 Urinary Catheter Time of Insertion: 15:00 Data : 05/08/20 04:00 05/08/20 04:00 Micro: Microbiology 05/06/20 15:12 Urine Culture - Final Urine,Clean Catch Klebsiella pneumoniae 05/05/20 23:27 Blood Culture - Preliminary Blood Staphylococcus sp coag neg 05/05/20 23:27 Blood Culture - Preliminary Blood Gram positive cocci A&P Assessment and plan (1) COVID-19: With pneumonia. Status: Acute (2) Acute hypotension: Status: Acute (3) Altered mental status: Status: Acute Qualifiers: Altered mental status type: unspecified Qualified Code(s): R41.82 - Altered mental status, unspecified (4) Alzheimer's dementia: Status: Acute (5) YVONNE (acute kidney injury): Status: Acute (6) Dehydration: Status: Acute (7) Sepsis: Status: Acute (8) Acute respiratory failure with hypoxia: Secondary to COVID-19 pneumonia Status: Acute (9) Urinary tract infection: Present on admission Status: Acute (10) Chemical dermatitis: Present admission Status: Acute Additional A&P Information Sepsis secondary to COVID-19 viral pneumonia and UTI. Acute hypoxic respiratory failure secondary to COVID-19 pneumonia Extremely high D-dimer I will start her on heparin drip, high suspicion for PE secondary to hypercoagulable state with COVID-19 Not a candidate for CTA chest because of YVONNE, once stable could benefit from VQ scan Currently doing well on 3 to nasal cannula, she is DNR/DNI however no acute respiratory distress YVONNE Most likely secondary to lisinopril and dehydration Currently she is status post 1.5 L normal saline bolus in the ER Monitor urine output, Follow-up with urinalysis Acute hypoactive delirium with underlying dementia This most likely secondary to dehydration and COVID-19 pneumonia At baseline she could communicate, mildly function for ADL Check B12, TSH DNR/DNI N.p.o. until her mentation improves DVT prophylaxis not needed currently on heparin drip Secondary to significant comorbidities he carries higher mortality morbidity risk PLAN: Continue using Browning catheter. Continue ceftriaxone and remdesivir/steroids. DC IV fluids as patient's oral intake improved. Attestations Medical Necessity Statement*: Patient with COVID-19 pneumonia requires close inpatient monitoring and treatment Time Spent in Patient Care: 16 - 35 minutes Coding Level of Care Code Acute Certified Nurse Operating Room for [facility] Fw Diagnoses COVID-19 U07.1 Acute hypotension I95.9 Altered mental status R41.82 Altered mental status type: unspecified Alzheimer's dementia G30.9; F02.80 YVONNE (acute kidney injury) N17.9 Dehydration E86.0 Sepsis A41.9 Acute respiratory failure with hypoxia J96.01 Urinary tract infection N39.0 Chemical dermatitis L25.3
[2020-05-08] MEDS: potassium chloride ER 20 mEq Tablet 40 MEQ PO (13:43)
[2020-05-08 16:00] VITALS: BP 117/69; PULSE 62; RESP 18; TEMP 36.6; O2SAT 97
[2020-05-08 20:00] VITALS: BP 137/87; PULSE 68; RESP 16; TEMP 36.4; O2SAT 93
[2020-05-09] VITALS (7 sets, daily range): BP systolic 137–161; BP diastolic 75–90; PULSE 52–61; RESP 16–18; TEMP 36.4–36.8; O2SAT 91–96
[2020-05-09 00:13] LABS: Partial Thromboplastin Time 111.9 SECONDS (23.9-36.7)
[2020-05-09 05:01] LABS: Basophils % 0.3 %; Hemoglobin 11.1 g/dL (11.5-15.3); Lymphocytes # 0.4 10^3/uL (0.8-4.8); Lymphocytes % 6.5 %; Mean Corpuscular HGB Conc 32.6 g/dL (30.0-36.0); Mean Corpuscular Hemoglobin 31.9 pg (28.0-34.0); Mean Corpuscular Volume 97.7 fL (81-99); Mean Platelet Volume 11.4 fL (7.4-10.4); Monocytes # 0.5 10^3/uL (0.2-0.9); Monocytes % 9.1 %; Neutrophils # 4.69 10^3/uL (1.8-7.7); Neutrophils % 80.8 %; Nucleated Red Blood Cells % 0 %; Platelet Count 247 10^3/cmm (130-400); Red Blood Count 3.48 10^6/uL (4.1-5.3); Red Cell Distribution Width 14.9 % (12.1-15.1); White Blood Count 5.8 10^3/uL (4.0-10.0)
[2020-05-09 05:28] LABS: Alanine Aminotransferase 30 U/L (0-33); Alkaline Phosphatase 98 IU/L (35-105); Aspartate Amino Transferase 34 U/L (0-32); Blood Urea Nitrogen 22 mg/dL (8-23); Calcium 8.2 mg/dL (8.5-10.5); Carbon Dioxide 22 mmol/L (22-29); Chloride 105 mmol/L (98-107); Globulin 2.6 g/dL (1.3-4.6); Glucose 110 mg/dL (65-115); Magnesium 1.9 mg/dL (1.7-2.3); Osmolality Calculated 294 mOsm/kg (285-295); Sodium 140 mmol/L (136-145); Total Bilirubin 0.4 mg/dL (0.15-1.2); Total Protein 5.6 g/dL (6.6-8.7)
[2020-05-09 05:37] LABS: Anion Gap 16.5 (5-19); Potassium 3.5 mmol/L (3.5-5.1)
[2020-05-09 05:45] LABS: Partial Thromboplastin Time 212.5 SECONDS (23.9-36.7)
--- NOTE | 2020-05-09 06:19 | PC.NURSE ---
Received a PTT of 212.5, notified doctor, received new orders to hold heparin for 4 hours, it will be restarted at 1000
[2020-05-09] MEDS: memantine 5 mg tablet 10 MG PO ×2 (09:03→18:06)
[2020-05-09] MEDS: dexamethasone 4 mg Tablet 6 MG PO (09:03)
[2020-05-09] MEDS: donepezil 5 MG Tablet 10 MG PO ×2 (09:04→20:48)
[2020-05-09] MEDS: cefTRIAXone 1,000 MG in sodium chloride 0.9% (plus) 50 ML 100 MG IV (09:04)
--- NOTE | 2020-05-09 10:28 | PC.SOCIAL ---
IMM Update Pg. 2 of IMM updated and reviewed with patient's daughter who verbalized understanding.
[2020-05-09] MEDS: pantoprazole 40 mg SDV IVP (11:07)
--- NOTE | 2020-05-09 11:18 | P.PN_ITS ---
Subjective Subjective: Interval history: Patient cannot communicate. She is not in any distress but continues to require 3 L of oxygen to saturate in the 90s. Continues to have poor oral intake. Vitals/I&O/Wt Last Vital Signs Temp 97.5 F L 05/09/20 08:00 Pulse 52 L 05/09/20 08:00 Resp 16 05/09/20 08:00 BP 156/90 05/09/20 08:00 Pulse Ox 96 05/09/20 08:00 05/08/20 05/09/20 05/09/20 22:59 06:59 14:59 Output Total 1000 / 1000 Balance -1000 / -36.5 Physical Exam Const: COMMON NORMALS: no acute distress Resp: COMMON NORMALS: normal respiratory effort and clear to auscultation bilaterally AUSCULTATION: clear to auscultation bilaterally Cardio: COMMON NORMALS: regular rate, regular rhythm and S2 normal heart sound present RATE: regular rate RHYTHM: regular rhythm HEART SOUNDS: S2 normal heart sound present OTHER: No lower extremity edema GI: COMMON NORMALS: Normal to inspection, nondistended, normoactive bowel sounds present, Soft to palpation and non-tender PALPATION: Yes Soft to palpation Neuro: COMMON NORMALS: no focal motor deficits Urinary Catheter Management^: Browning: Cath Placed During This Visit: yes Reason for Continuing Indwelling Catheter: Assist healing open wound Urinary Catheter Date of Insertion: 05/06/20 Urinary Catheter Time of Insertion: 15:00 Data : 05/09/20 04:07 05/09/20 04:07 Micro: Microbiology 05/06/20 15:12 Urine Culture - Final Urine,Clean Catch Klebsiella pneumoniae 05/05/20 23:27 Blood Culture - Preliminary Blood Staphylococcus sp coag neg A&P Assessment and plan (1) COVID-19: With pneumonia. Status: Acute (2) Acute hypotension: Status: Acute (3) Altered mental status: Status: Acute Qualifiers: Altered mental status type: unspecified Qualified Code(s): R41.82 - Altered mental status, unspecified (4) Alzheimer's dementia: Status: Acute (5) YVONNE (acute kidney injury): Status: Acute (6) Dehydration: Status: Acute (7) Sepsis: Status: Acute (8) Acute respiratory failure with hypoxia: Secondary to COVID-19 pneumonia Status: Acute (9) Urinary tract infection: Present on admission Status: Acute (10) Chemical dermatitis: Present admission Status: Acute Additional A&P Information Sepsis secondary to COVID-19 viral pneumonia and UTI. Acute hypoxic respiratory failure secondary to COVID-19 pneumonia Extremely high D-dimer I will start her on heparin drip, high suspicion for PE secondary to hypercoagulable state with COVID-19 Not a candidate for CTA chest because of YVONNE, once stable could benefit from VQ scan Currently doing well on 3 to nasal cannula, she is DNR/DNI however no acute respiratory distress YVONNE Most likely secondary to lisinopril and dehydration Currently she is status post 1.5 L normal saline bolus in the ER Monitor urine output, Follow-up with urinalysis Acute hypoactive delirium with underlying dementia This most likely secondary to dehydration and COVID-19 pneumonia At baseline she could communicate, mildly function for ADL Check B12, TSH DNR/DNI N.p.o. until her mentation improves DVT prophylaxis not needed currently on heparin drip Secondary to significant comorbidities he carries higher mortality morbidity r isk PLAN: Continue using Browning catheter. Continue ceftriaxone and remdesivir/steroids. We will proceed with CTA of chest to make decision regarding therapeutic anticoagulation. Heparin gtt currently DC'd Attestations Medical Necessity Statement*: Patient with COVID-19 pneumonia requires close inpatient monitoring and treatment until deemed safe for discharge. Coding Level of Care Code Acute Binding Dyer for [facility] Fw Diagnoses COVID-19 U07.1 Acute hypotension I95.9 Altered mental status R41.82 Altered mental status type: unspecified Alzheimer's dementia G30.9; F02.80 YVONNE (acute kidney injury) N17.9 Dehydration E86.0 Sepsis A41.9 Acute respiratory failure with hypoxia J96.01 Urinary tract infection N39.0 Chemical dermatitis L25.3
--- NOTE | 2020-05-09 11:18 | CT_ITS ---
WS: [id number] CT CHEST ANGIOGRAPHY WITH REFORMATS HISTORY: Acute hypoxic respite failure TECHNIQUE: Contiguous axial images are obtained through the chest during arterial injection of intrav enous contrast. Images are reconstructed to evaluate the pulmonary arteries. MIP imaging also reviewe d. All CT scans at [facility] use at least one of these dose optimization techniques: aut omated exposure control; mA and/or kV adjustment per patient size (includes targeted exams where dose is matched to clinical indication); or iterative reconstruction. CONTRAST: Omnipaque 350; 95 mL IV. DLP: 485.26 mGy.cm COMPARISON: None available. Adequate opacification of the pulmonary arteries. Centrally there are no pulmonary emboli. Opacificat ions, decreased in the subsegmental arterial system. Normal size pulmonary artery. Mild ectasia and a therosclerosis of the aorta. Mild enlargement of the heart chambers. No pericardial or pleural effusi ons. Scattered opacifications are noted bilaterally predominantly within the posterior upper and lowe r lung medel and more scattered within the lower lung medel and RIGHT middle lobe. Scattered opacif ications and groundglass attenuation. Pulmonary changes are superimposed on chronic emphysema. Mildly prominent lymph node measuring 16 mm at the RIGHT hilum. There are a few additional smaller RI GHT hilar lymph nodes. Benign dense calcified lymph nodes in the subcarina. Mild hepatic steatosis. No adrenal mass. Small hiatal hernia. Mild osteopenia. Mild RIGHT convex curv ature thoracic spine. CT/CT angio chest PE protcl [id number] IMPRESSION: 1. No pulmonary embolism. 2. Diffuse bilateral pulmonary opacifications consistent with a history of Cov id 19 diagnosis. Most significant in the lower lobes and RIGHT middle lobe. 3. Chronic emphysema.
[2020-05-09 11:25] LABS: Partial Thromboplastin Time 22.1 SECONDS (23.9-36.7)
--- NOTE | 2020-05-09 12:55 | PC.NURSE ---
I tried with breakfast and lunch to give the patient bites of food. she spit it back out at me. i have reported this to the nurse. she has had issues giving meds also
[2020-05-09] MEDS: iohexol 350 mg/mL 100 mL Btl IV (14:31)
[2020-05-09] MEDS: enoxaparin 40 mg/0.4 mL Syringe SUBCUT (18:06)
[2020-05-10 04:00] VITALS: BP 166/87; PULSE 54; RESP 16; TEMP 36.4; O2SAT 94
[2020-05-10 04:14] LABS: Basophils % 0.2 %; Hematocrit 37.2 % (37.0-47.0); Lymphocytes # 0.4 10^3/uL (0.8-4.8); Lymphocytes % 8.2 %; Mean Corpuscular HGB Conc 32.3 g/dL (30.0-36.0); Mean Corpuscular Hemoglobin 31.3 pg (28.0-34.0); Mean Corpuscular Volume 96.9 fL (81-99); Mean Platelet Volume 11.5 fL (7.4-10.4); Monocytes # 0.5 10^3/uL (0.2-0.9); Monocytes % 10.2 %; Neutrophils # 3.51 10^3/uL (1.8-7.7); Neutrophils % 77.4 %; Nucleated Red Blood Cells % 0 %; Platelet Count 252 10^3/cmm (130-400); Red Blood Count 3.84 10^6/uL (4.1-5.3); Red Cell Distribution Width 14.8 % (12.1-15.1); White Blood Count 4.5 10^3/uL (4.0-10.0)
[2020-05-10 04:33] LABS: Alanine Aminotransferase 33 U/L (0-33); Albumin Level 3.2 g/dL (3.5-5.2); Alkaline Phosphatase 100 IU/L (35-105); Anion Gap 13.6 (5-19); Aspartate Amino Transferase 31 U/L (0-32); Blood Urea Nitrogen 21 mg/dL (8-23); Calcium 8.7 mg/dL (8.5-10.5); Carbon Dioxide 25 mmol/L (22-29); Chloride 105 mmol/L (98-107); Glucose 121 mg/dL (65-115); Osmolality Calculated 294 mOsm/kg (285-295); Potassium 3.6 mmol/L (3.5-5.1); Sodium 140 mmol/L (136-145); Total Bilirubin 0.4 mg/dL (0.15-1.2); Total Protein 6.2 g/dL (6.6-8.7)
[2020-05-10 08:00] VITALS: BP 160/92; PULSE 62; RESP 18; TEMP 36.4; O2SAT 91
[2020-05-10] MEDS: cefTRIAXone 1,000 MG in sodium chloride 0.9% (plus) 50 ML 100 MG IV (08:36)
[2020-05-10] MEDS: pantoprazole 40 mg SDV IVP (11:04)
[2020-05-10 11:21] VITALS: BP 133/75; PULSE 57; RESP 18; TEMP 36.7; O2SAT 92
--- NOTE | 2020-05-10 14:09 | PM.PN ---
Subjective Subjective: Interval history: Patient cannot communicate. Patient is unchanged. Does not appear in any distress. Oxygen was decreased to 1 L since he is saturating in the low 90s. Vitals/I&O/Wt Last Vital Signs Temp 98.1 F 05/10/20 11:21 Pulse 57 L 05/10/20 11:21 Resp 18 05/10/20 11:21 BP 133/75 05/10/20 11:21 Pulse Ox 92 05/10/20 11:21 05/09/20 05/10/20 05/10/20 22:59 06:59 14:59 Output Total 0 / 1 400 / 401 Balance 0 / 149 -400 / -251 Physical Exam Const: COMMON NORMALS: no acute distress Resp: COMMON NORMALS: normal respiratory effort and clear to auscultation bilaterally AUSCULTATION: clear to auscultation bilaterally Cardio: COMMON NORMALS: regular rate, regular rhythm and S2 normal heart sound present RATE: regular rate RHYTHM: regular rhythm HEART SOUNDS: S2 normal heart sound present OTHER: No lower extremity edema GI: COMMON NORMALS: Normal to inspection, nondistended, normoactive bowel sounds present, Soft to palpation and non-tender PALPATION: Yes Soft to palpation Neuro: COMMON NORMALS: no focal motor deficits Urinary Catheter Management^: Browning: Cath Placed During This Visit: yes Reason for Continuing Indwelling Catheter: Accurate Measurement of Urinary Output in Critically Ill Patients Urinary Catheter Date of Insertion: 05/06/20 Urinary Catheter Time of Insertion: 15:00 Data : 05/10/20 03:19 05/10/20 03:19 Micro: Microbiology 05/05/20 23:27 Blood Culture - Preliminary Blood Staphylococcus epidermidis 05/05/20 23:27 Blood Culture - Preliminary Blood Staphylococcus epidermidis A&P Assessment and plan (1) COVID-19: With pneumonia. Status: Acute (2) Acute hypotension: Status: Acute (3) Altered mental status: Status: Acute Qualifiers: Altered mental status type: unspecified Qualified Code(s): R41.82 - Altered mental status, unspecified (4) Alzheimer's dementia: Status: Acute (5) YVONNE (acute kidney injury): Status: Acute (6) Dehydration: Status: Acute (7) Sepsis: Status: Acute (8) Acute respiratory failure with hypoxia: Secondary to COVID-19 pneumonia Status: Acute (9) Urinary tract infection: Present on admission Status: Acute (10) Chemical dermatitis: Present admission Status: Acute Additional A&P Information Sepsis secondary to COVID-19 viral pneumonia and UTI. Acute hypoxic respiratory failure secondary to COVID-19 pneumonia Extremely high D-dimer I will start her on heparin drip, high suspicion for PE secondary to hypercoagulable state with COVID-19 Not a candidate for CTA chest because of YVONNE, once stable could benefit from VQ scan Currently doing well on 3 to nasal cannula, she is DNR/DNI however no acute respiratory distress YVONNE Most likely secondary to lisinopril and dehydration Currently she is status post 1.5 L normal saline bolus in the ER Monitor urine output, Follow-up with urinalysis Acute hypoactive delirium with underlying dementia This most likely secondary to dehydration and COVID-19 pneumonia At baseline she could communicate, mildly function for ADL Check B12, TSH DNR/DNI N.p.o. until her mentation improves DVT prophylaxis not needed currently on heparin drip Secondary to significant comorbidities he carries higher mortality morbidity risk PLAN: Continue using Browning catheter. Continue ceftriaxone and remdesivir/steroids. Lovenox for started for DVT prophylaxis as heparin drip was discontinued. Once patient's remdesivir completed we will likely be able to dismiss her back to nursing facility tomorrow. Attestations Medical Necessity Statement*: Patient with COVID-19 pneumonia and hypoxic respite failure requires close inpatient monitoring and treatment until deemed safe for discharge. Time Spent in Patient Care: 16 - 35 minutes Coding Level of Care Code Acute Services Coordinator for [facility] Diagnoses COVID-19 U07.1 Acute hypotension I95.9 Altered mental status R41.82 Altered mental status type: unspecified Alzheimer's dementia G30.9; F02.80 YVONNE (acute kidney injury) N17.9 Dehydration E86.0 Sepsis A41.9 Acute respiratory failure with hypoxia J96.01 Urinary tract infection N39.0 Chemical dermatitis L25.3
[2020-05-10 16:00] VITALS: BP 140/80; PULSE 60; RESP 18; TEMP 36.2; O2SAT 90
[2020-05-10] MEDS: enoxaparin 40 mg/0.4 mL Syringe SUBCUT (16:48)
[2020-05-10 20:00] VITALS: BP 133/81; PULSE 62; RESP 14; TEMP 36.6; O2SAT 95
[2020-05-11] VITALS: BP 142/83; PULSE 62; RESP 24; TEMP 36.3; O2SAT 96
[2020-05-11 04:00] VITALS: BP 133/82; PULSE 61; RESP 14; TEMP 35.9; O2SAT 94
--- NOTE | 2020-05-11 06:17 | PC.NURSE ---
Patient continues to not respond to stimuli when calling her name or by touch. Patient will moan when turned, then the patient will rearrange to her comfort. Patient if difficult to awaken. Otherwise patient mainly slept.
[2020-05-11 07:59] VITALS: BP 147/89; PULSE 62; RESP 18; TEMP 36.4; O2SAT 90
--- NOTE | 2020-05-11 08:54 | P.DS_ITS ---
Discharge Providers Date of Admission: 05/06/20 01:18 Date of Discharge: May 11, 2020 Attending Provider at Admission: Yohana Ruiz MD Attending Provider at Discharge: Pineda Peoples MD Diagnoses at Discharge Discharge Diagnosis (1) COVID-19: Status: Acute Permanent problem details: With evidence of multilobar pneumonia. (2) Acute hypotension: Status: Acute Permanent problem details: Resolved (3) Altered mental status: Status: Acute Permanent problem details: Currently patient appears to be at baseline Qualifiers: Altered mental status type: unspecified Qualified Code(s): R41.82 - Altered mental status, unspecified (4) Alzheimer's dementia: Status: Acute (5) YVONNE (acute kidney injury): Status: Acute Permanent problem details: Resolved (6) Dehydration: Status: Acute Permanent problem details: Resolved (7) Sepsis: Status: Acute Permanent problem details: Resolved (8) Acute respiratory failure with hypoxia: Status: Acute (9) Urinary tract infection: Status: Acute (10) Chemical dermatitis: Status: Acute Permanent problem details: Due to chronic urinary incontinence Reason for Visit Reason for Visit: [facility] Hospital Course Hospital Course Patient presented with altered mental status and found to have COVID-19 pneum onia and Klebsiella pneumonia UTI. Patient was treated with remdesivir and dexamethasone as well as ceftriaxone and her hypotension and acute kidney injury improved. Patient remains mute and does not communicate which is likely related to her underlying dementia and current illness. She was found to have significant contact dermatitis because of chronic urinary incontinence. Browning catheter was placed and I will keep it in until patient is seen by wound care clinic with decision to made at that time to remove or not. Because of her immunosuppressed state I will continue patient on 10 more days of Omnicef. Patient had to different set of blood cultures positive for staph epi 1 out of 2 which appears to be a contamination. I will request repeat blood cultures prior to discharge and results will need to be followed by primary care physician. Given patient's underlying dementia I think she will do much better at her known environment. She continues to require 3 L of oxygen to saturate in the low 90s. I will continue dexamethasone for 5 more days. Would prefer to hold immunosuppressive medications for now and restart next week. Would like patient to be seen by primary care physician and decide about immunosuppressive therapy at this point. Physical Exam Const: COMMON NORMALS: no acute distress Resp: COMMON NORMALS: normal respiratory effort and clear to auscultation bilaterally AUSCULTATION: clear to auscultation bilaterally Cardio: COMMON NORMALS: regular rate, regular rhythm and S2 normal heart sound present RATE: regular rate RHYTHM: regular rhythm HEART SOUNDS: S2 normal heart sound present OTHER: No lower extremity edema GI: COMMON NORMALS: Normal to inspection, nondistended, normoactive bowel sounds present, Soft to palpation and non-tender PALPATION: Yes Soft to palpation Neuro: COMMON NORMALS: no focal motor deficits (On gross examination.) Urinary Catheter Management^: Browning: Cath Placed During This Visit: yes Reason for Continuing Indwelling Catheter: Accurate Measurement of Urinary Output in Critically Ill Patients Urinary Catheter Date of Insertion: 05/06/20 Urinary Catheter Time of Insertion: 15:00 Discharge Data Data Completed and Pending: Completed Studies During Hospitalization Category Date Time Status CT angio chest PE protcl [id number] Rout ine Cat Scan 05/09/20 11:[address] head wo con* 7 0450 Urgent Cat Scan 05/05/20 22:36 Completed XR chest 1V sanjay ble [id number] Stat Exams 05/05/20 22:36 Completed Pending at discharge Category Date Time Status Blood Culture Sta t Lab 05/05/20 23:27 Results Blood Culture Sta t Lab 05/11/20 08:41 Ordered Clostridioides Di fficile PCR Routin e Lab 05/06/20 18:26 Uncollected Stool Culture, Ba cterial [Enteric B acterial Panel by Lab 05/06/20 18:26 Uncollected PCR] Routine Urinalysis Stat Lab 05/05/20 22:36 Uncollected Vitals: Last Vital Signs Temp 97.5 F L 05/11/20 07:59 Pulse 62 05/11/20 07:59 Resp 18 05/11/20 07:59 BP 147/89 05/11/20 07:59 Pulse Ox 90 05/11/20 07:59 Discharge Plan Discharge Patient Disposition: Xfer SNF Condition: Stable Prescriptions: New pantoprazole [Protonix] 40 mg tablet,delayed release (DR/EC) 40 mg PO DAILY Qty: 14 RF: 0 cefdinir 300 mg capsule 300 mg PO BID 10 Days Qty: 20 RF: 0 dexamethasone 6 mg tablet 6 mg PO DAILY Qty: 5 RF: 0 Continued lisinopril 10 mg tablet 10 mg PO BID RF: 0 donepezil 10 mg tablet 10 mg PO BID RF: 0 citalopram [Celexa] 20 mg tablet 20 mg PO BEDTIME RF: 0 cetirizine [Zyrtec] 10 mg tablet 10 mg PO DAILY PRN (Reason: allergy symptoms) Qty: 30 RF: 0 fluticasone propionate [Flonase Allergy Relief] 50 mcg/actuation spray,suspension 1 spray INTRANASAL DAILY Qty: 15.8 RF: 0 folic acid 1 mg tablet See Rx Instructions .ROUTE .COMPLEX Qty: 90 RF: 2 Tylenol 325 mg Tablet 650 mg PO TID PRN (Reason: Pain) RF: 0 niacin 500 mg Tablet 500 mg PO DAILY RF: 0 docusate sodium 100 mg Capsule 100 mg PO BID RF: 0 [place] 3 Capsule 1,000 mg PO DAILY RF: 0 memantine 10 mg Tablet 10 mg PO BID RF: 0 Calcitrate-Vitamin D 315 mg-6.25 mcg (250 unit) Tablet 1 tab PO DAILY RF: 0 Seroquel XR 50 mg Tablet Extended Release 24 Hr 50 mg PO BID RF: 0 Held methotrexate sodium 2.5 mg tablet 2.5 mg PO .ONCE WEEKLY RF: 0 Hold Instructions: Resume on 05/22/20. Please skip methotrexate next week and resume week after leflunomide 20 mg tablet See Rx Instructions .ROUTE .COMPLEX Qty: 30 RF: 2 Hold Instructions: Resume on 05/15/20. Resume next Friday. Discharge Orders: Discharge Order (Routine); Ordered 05/11/20 Ordered By: Pineda Peoples Referrals: [facility] [Outside] Discharge Diet: Advance as tolerated Discharge Activity: Resume usual activity Activity Restrictions/Additional Instructions: Please call your doctor or present to emergency department if your condition worsens or you develop diarrhea, lightheadedness, fatigue or see blood in your stool or black stool. Please hold leflunomide until next Friday and restart methotrexate in a week. Patient to continue with 3 L of oxygen titrated for oxygen saturation more than 90%. Patient to keep Browning catheter in for now and follow-up with wound care clinic earliest possible. Once dermatitis healed Browning catheter can be removed. Discharge Attestations Time Spent in Discharge Care*: greater than 30 min Quality Metrics Clinical Quality Measures During this hospital stay, did patient experience: None Coding Level of Care Code Acute Junior Software Engineer for g Fwd Exam Detailed Diagnoses COVID-19 U07.1 Acute hypotension I95.9 Altered mental status R41.82 Altered mental status type: unspecified Alzheimer's dementia G30.9; F02.80 YVONNE (acute kidney injury) N17.9 Dehydration E86.0 Sepsis A41.9 Acute respiratory failure with hypoxia J96.01 Urinary tract infection N39.0 Chemical dermatitis L25.3
[2020-05-11] MEDS: cefTRIAXone 1,000 MG in sodium chloride 0.9% (plus) 50 ML 100 MG IV (09:20)
[2020-05-11] MEDS: pantoprazole 40 mg SDV IVP (09:26)
--- NOTE | 2020-05-11 10:55 | PC.SOCIAL ---
IMM Updated Updated pt's family on Pg 2 IMM, via phone. No questions voiced. Signed, dated, & timed copy in chart.
--- NOTE | 2020-05-11 11:50 | PC.NURSE ---
Attempted to take patient's vital signs at this time. Patient kept moving her arms and legs. Up able to obtain vitals at this time.
--- NOTE | 2020-05-11 13:13 | PC.NURSE ---
Report to Merritt MEHTA at [facility] in [place].
--- NOTE | 2020-05-11 13:19 | PC.NURSE ---
Patient's daughter Mariola Angulo notified that patient will return to the snf today.
[2020-05-11 16:00] VITALS: BP 147/87; PULSE 58; RESP 18; TEMP 36.6; O2SAT 90
--- NOTE | 2020-05-11 16:59 | PC.NURSE ---
[facility] here to transport patient back to [facility] in [place]. Patient wheel chaired to there van with her oxygen on. Patient is alert to self.
[2020-05-11 17:04] VITALS: BP 147/87; PULSE 60; RESP 18; TEMP 36.6; O2SAT 90
== END 2020-05-11 16:58 | disposition skilled nursing facility (03) | DRG 871 ==
LOC: ER 05-06 01:19 → MEDSURG 05-06 07:37
PROVIDERS: Nurse Practitioner Family; Admitting Provider Internal Medicine; Emergency Provider Emergency Medicine; Visit Provider Internal Medicine
DX: A41.9 Sepsis, unspecified organism (principal); U07.1 COVID-19; J12.89 Other viral pneumonia; J96.01 Acute respiratory failure with hypoxia; F05 Delirium due to known physiological condition; N17.9 Acute kidney failure, unspecified; N39.0 Urinary tract infection, site not specified; G30.9 Alzheimer's disease, unspecified; F02.80 Dementia in other diseases classified elsewhere, unspecified severity, without behavioral disturbance, psychotic disturbance, mood disturbance, and anxiety; Z66 Do not resuscitate; Z85.3 Personal history of malignant neoplasm of breast; I10 Essential (primary) hypertension; M19.90 Unspecified osteoarthritis, unspecified site; E55.9 Vitamin D deficiency, unspecified; Z87.891 Personal history of nicotine dependence; I95.9 Hypotension, unspecified; E86.0 Dehydration; R32 Unspecified urinary incontinence; L24.89 Irritant contact dermatitis due to other agents; B96.1 Klebsiella pneumoniae [K. pneumoniae] as the cause of diseases classified elsewhere; R15.9 Full incontinence of feces
CPT/HCPCS: 12345; 36415; 36416; 51702; 70450; 71045; 71275; 80048; 80053; 81001; 83605; 83615; 83735; 84145; 84484; 85007; 85025; 85049; 85378; 85730; 86140; 87040; 87077; 87086; 87186; 87205; 92610; 93005; 96375; 99283; C9113; J0696; J1100; J1644; J1650; J7030; J7040; J7799; J8540; Q9967

== ENCOUNTER → 2020-12-11 15:50 | Outpatient (BNVA) | payer MEDICARE, OTHER, MEDICAID, SELFPAY | PROVIDERS: PCP Internal Medicine; Visit Provider Nurse Practitioner Family | DX: G30.9 Alzheimer's disease, unspecified (principal); F02.80 Dementia in other diseases classified elsewhere, unspecified severity, without behavioral disturbance, psychotic disturbance, mood disturbance, and anxiety; I10 Essential (primary) hypertension; E55.9 Vitamin D deficiency, unspecified; Z79.899 Other long term (current) drug therapy | CPT/HCPCS: 80053; 82306; 82607; 82746; 84443; 85025 ==

== ENCOUNTER 2021-03-01 13:31 | Outpatient (CLI) | payer MEDICARE, OTHER, MEDICAID, SELFPAY ==
[2021-03-01 14:40] LABS: Glucose Urine UA Norm (Normal); Ketones Urine Negative (Negative); Protein Urine Neg (Negative); Specific Gravity, Urine 1.015 (1.005-1.030); Urine Appearance Cloudy (CLEAR); Urine Color Yellow (Yellow); pH Urine 7 (5-7)
[2021-03-01 14:41] LABS: Add Urine Microscopic? YES; Bilirubin Urine Neg (Negative); Blood Urine Neg (Negative); Leukocyte Esterase Urine 1+ (Negative); Nitrate Urine Positive (Negative); Urobilinogen Urine Norm (Negative)
[2021-03-01 14:42] LABS: RBC Urine 0-4 /hpf (0-2)
[2021-03-01 14:43] LABS: Bacteria Urine 3+ /hpf
[2021-03-01 14:44] LABS: Calcium Oxalate Crystals Urine 0-4 /hpf; WBC Urine 25-40 /hpf (0-5)
[2021-03-01 14:47] LABS: Add Urine Culture? Yes; Hyaline Casts Urine 0-4 /lpf
== END 2021-03-01 13:32 | disposition home or self-care (01) ==
PROVIDERS: PCP Internal Medicine; Visit Provider Nurse Practitioner Family
DX: N39.0 Urinary tract infection, site not specified (principal)
CPT/HCPCS: 81001; 87077; 87086; 87186